=== PATIENT | female | born 1990 | race Caucasian/White ===

== ENCOUNTER 2018-09-19 20:49 | Emergency (ER) | payer BC ==
[~2018-09-19] VITALS: Ht 154.9 cm; Wt 63.7 kg
[2018-09-19 22:17] LABS: BASOPHILS % (AUTO) 0.2 % (0-1); EOSINOPHILS # (AUTO) 0.3 X10'3 (0-0.9); EOSINOPHILS % (AUTO) 2.6 % (0-6); HEMATOCRIT 49.6 % (35.0-45.0); HEMOGLOBIN 16.7 g/dl (12.0-16.0); LYMPHOCYTES # (AUTO) 1.9 X10'3 (1.1-4.8); LYMPHOCYTES % (AUTO) 14.8 % (21-51); MEAN CORPUSCULAR HGB CONC 33.7 g/dL (33.0-36.5); MEAN CORPUSCULAR VOLUME 91.9 FL (78-98); MEAN PLATELET VOLUME 8.7 FL (7.4-10.4); MONOCYTES # (AUTO) 0.3 X10'3 (0-0.9); MONOCYTES % (AUTO) 2.2 % (2-12); NEUTROPHILS # (AUTO) 10.2 X10'3 (1.8-7.7); NEUTROPHILS % (AUTO) 80.2 % (42-75); PLATELET COUNT 420 X10'3 (140-440); RED CELL DISTRIBUTION WIDTH 12.6 % (11.5-14.5); WHITE BLOOD COUNT 12.8 X10'3 (4.5-11.0)
[2018-09-19] MEDS ORDERED: normal saline 1000ML IV soln IVB ONE (22:30)
[2018-09-19] MEDS ORDERED: ondansetron/PF 4mg/2ml inj IV ONE (22:30)
[2018-09-19 22:34] LABS: ALANINE AMINOTRANSFERASE 13 U/L (12-78); ALBUMIN 4.5 G/DL (3.4-5.0); ALBUMIN/GLOBULIN RATIO 1.2 (1.1-1.5); ALKALINE PHOSPHATASE 65 IU/L (46-116); ANION GAP 13 (8-16); ASPARTATE AMINO TRANSFERASE 16 U/L (10-37); BILIRUBIN,TOTAL 0.8 MG/DL (0.1-1.0); BLOOD UREA NITROGEN 11 MG/DL (7-18); BUN/CREATININE RATIO 11.5 (6.6-38.0); CALCIUM 9.3 MG/DL (8.5-10.1); CHLORIDE 98 MMOL/L (99-107); CREATININE 0.96 MG/DL (0.40-0.90); GLUCOSE 97 MG/DL (70-104); POTASSIUM 3.3 MMOL/L (3.5-5.1); SODIUM 138 MMOL/L (135-145); TOTAL CARBON DIOXIDE 27.5 MMOL/L (24-32); TOTAL PROTEIN 8.2 G/DL (6.4-8.2); eGFR 69 ML/MIN
[2018-09-19 22:35] LABS: INR 1.1 INR; PROTHROMBIN TIME 10.7 SECONDS (9.0-12.0)
[2018-09-19 22:40] LABS: CLARITY,URINE CLEAR (Clear); COLOR,URINE YELLOW (Yellow); GLUCOSE, URINE NEGATIVE (Neg); KETONES,URINE TRACE mg/dl (Neg); LEUKOCYTE ESTERASE ,URINE NEGATIVE (Neg); NITRITES, URINE NEGATIVE (Neg); OCCULT BLOOD,URINE MODERATE (Neg); PROTEIN,URINE NEGATIVE (Neg); URINE HCG NEGATIVE (NEG); UROBILINOGEN,URINE 0.2 E.U/dL (0.2-1.0)
[2018-09-19 22:43] LABS: UA COLLECTION TYPE CLN CATCH MIDSTREAM
[2018-09-19 22:46] LABS: LIPASE 123 U/L (73-393)
[2018-09-19 22:48] LABS: BACTERIA,URINE FEW /HPF (Neg); SQUAMOUS EPITHELIAL CELL,UR FEW /LPF (FEW); WBC,URINE 0-4 /HPF (0-4)
[2018-09-19 22:49] LABS: MUCUS STRANDS MODERATE /LPF (Neg)
[2018-09-19] MEDS ORDERED: proCHLORperazine 10 MG/2 ml inj IV ONE (23:10)
[2018-09-20] MEDS ORDERED: potassium Cl oral solution 20 MEQ/15 ML PO ONE (00:50)
[2018-09-20] MEDS ORDERED: ONDA4TAB6 PO (00:51)
[2018-09-20] MEDS ORDERED: PROC25SU31 RC (00:51)
[2018-09-20] MEDS ORDERED: famotidine/PF 10 mg/ml inj IV ONE (01:10)
[2018-09-20] MEDS ORDERED: ondansetron/PF 4mg/2ml inj IV ONE (01:10)
[2018-09-20 01:27] VITALS: BP 139/100
== END 2018-09-20 01:29 | disposition home or self-care (01) ==
LOC: ER 20:50
DX: B34.9 Viral infection, unspecified (principal); E86.0 Dehydration; E87.6 Hypokalemia; R79.1 Abnormal coagulation profile; Z97.5 Presence of (intrauterine) contraceptive device; Z91.018 Allergy to other foods; Z88.1 Allergy status to other antibiotic agents
CPT/HCPCS: 36415; 74176; 80053; 81001; 81025; 83690; 85025; 85610; 96374; 96375; 96376; 99284; J0780; J2405; J3490; J7030

== ENCOUNTER 2018-10-21 19:52 | Emergency (ER) | payer BC ==
[~2018-10-21] VITALS: Ht 154.9 cm; Wt 58.0 kg
[~2018-10-21 19:52] MED LIST: ONDA4TAB6 PO; PROC25SU31 RC
[2018-10-21 21:09] VITALS: BP 130/94
[2018-10-21] MEDS ORDERED: normal saline 1000ML IV soln IVB ONE (21:15)
[2018-10-21] MEDS ORDERED: ondansetron/PF 4mg/2ml inj IV ONE (22:00)
[2018-10-21 22:09] LABS: BASOPHILS # (AUTO) 0.1 X10'3 (0-0.2); BASOPHILS % (AUTO) 0.7 % (0-1); EOSINOPHILS # (AUTO) 0.1 X10'3 (0-0.9); EOSINOPHILS % (AUTO) 1.5 % (0-6); HEMATOCRIT 44.4 % (35.0-45.0); HEMOGLOBIN 15.4 g/dl (12.0-16.0); LYMPHOCYTES # (AUTO) 2.2 X10'3 (1.1-4.8); LYMPHOCYTES % (AUTO) 26.3 % (21-51); MEAN CORPUSCULAR HGB CONC 34.7 g/dL (33.0-36.5); MEAN CORPUSCULAR VOLUME 89.2 FL (78-98); MEAN PLATELET VOLUME 9.1 FL (7.4-10.4); MONOCYTES % (AUTO) 11.8 % (2-12); NEUTROPHILS # (AUTO) 4.9 X10'3 (1.8-7.7); NEUTROPHILS % (AUTO) 59.7 % (42-75); PLATELET COUNT 383 X10'3 (140-440); RED BLOOD COUNT 4.97 X10'6 (4.20-5.60); WHITE BLOOD COUNT 8.3 X10'3 (4.5-11.0)
[2018-10-21 22:15] LABS: INR 1.1 INR
[2018-10-21 22:18] LABS: ALANINE AMINOTRANSFERASE 15 U/L (12-78); ALBUMIN 3.9 G/DL (3.4-5.0); ALBUMIN/GLOBULIN RATIO 1.1 (1.1-1.5); ALKALINE PHOSPHATASE 64 IU/L (46-116); ANION GAP 11 (8-16); ASPARTATE AMINO TRANSFERASE 12 U/L (10-37); BILIRUBIN,TOTAL 0.6 MG/DL (0.1-1.0); BLOOD UREA NITROGEN 10 MG/DL (7-18); BUN/CREATININE RATIO 9.6 (6.6-38.0); CALCIUM 9.4 MG/DL (8.5-10.1); CHLORIDE 99 MMOL/L (99-107); CREATININE 1.04 MG/DL (0.40-0.90); GLUCOSE 112 MG/DL (70-104); POTASSIUM 3.2 MMOL/L (3.5-5.1); SODIUM 137 MMOL/L (135-145); TOTAL CARBON DIOXIDE 26.8 MMOL/L (24-32); TOTAL PROTEIN 7.3 G/DL (6.4-8.2); eGFR 63 ML/MIN
[2018-10-21] MEDS ORDERED: PHE12.5T PO (22:44)
[2018-10-21] MEDS ORDERED: proCHLORperazine 10 MG/2 ml inj IM ONE (22:45)
[2018-10-21 23:49] LABS: URINE HCG NEGATIVE (NEG)
[2018-10-22 00:27] LABS: CLARITY,URINE SLIGHTLY CLOUDY (Clear); COLOR,URINE RED (Yellow); GLUCOSE, URINE NEGATIVE (Neg); KETONES,URINE 40 mg/dl (Neg); LEUKOCYTE ESTERASE ,URINE TRACE (Neg); NITRITES, URINE NEGATIVE (Neg); OCCULT BLOOD,URINE LARGE (Neg); PH,URINE 7.5 (4.8-8.0); PROTEIN,URINE NEGATIVE (Neg); UROBILINOGEN,URINE 0.2 E.U/dL (0.2-1.0)
[2018-10-22 00:35] LABS: UA COLLECTION TYPE CLN CATCH MIDSTREAM
[2018-10-22 00:54] LABS: BACTERIA,URINE FEW /HPF (Neg); MUCUS STRANDS FEW /LPF (Neg); RBC,URINE NONE SEEN /HPF (0-2); SQUAMOUS EPITHELIAL CELL,UR FEW /LPF (FEW); WBC,URINE 0-4 /HPF (0-4)
== END 2018-10-21 23:48 | disposition home or self-care (01) ==
LOC: ER 19:53
DX: E87.6 Hypokalemia (principal); E86.0 Dehydration; R11.2 Nausea with vomiting, unspecified; K59.00 Constipation, unspecified; R79.1 Abnormal coagulation profile; Z87.891 Personal history of nicotine dependence; Z88.1 Allergy status to other antibiotic agents; Z91.018 Allergy to other foods; Z79.899 Other long term (current) drug therapy
CPT/HCPCS: 36415; 80053; 81001; 81025; 85025; 85610; 87088; 96361; 96372; 96374; 99283; J0780; J2405; J7030; 81003

== ENCOUNTER 2018-10-26 11:56 | Emergency (ER) | payer BC ==
[~2018-10-26] VITALS: Ht 154.9 cm; Wt 56.2 kg
[~2018-10-26 11:56] MED LIST changes: +PHE12.5T PO; -PROC25SU31 RC
[2018-10-26 13:00] LABS: BASOPHILS % (AUTO) 0.5 % (0-1); EOSINOPHILS # (AUTO) 0.1 X10'3 (0-0.9); EOSINOPHILS % (AUTO) 0.7 % (0-6); HEMATOCRIT 48.7 % (35.0-45.0); HEMOGLOBIN 16.5 g/dl (12.0-16.0); LYMPHOCYTES # (AUTO) 1.9 X10'3 (1.1-4.8); LYMPHOCYTES % (AUTO) 20.6 % (21-51); MEAN CORPUSCULAR HEMOGLOBIN 30.3 PG (27.0-31.0); MEAN CORPUSCULAR HGB CONC 33.8 g/dL (33.0-36.5); MEAN CORPUSCULAR VOLUME 89.4 FL (78-98); MEAN PLATELET VOLUME 9.2 FL (7.4-10.4); MONOCYTES # (AUTO) 0.8 X10'3 (0-0.9); MONOCYTES % (AUTO) 8.5 % (2-12); NEUTROPHILS # (AUTO) 6.5 X10'3 (1.8-7.7); NEUTROPHILS % (AUTO) 69.7 % (42-75); PLATELET COUNT 386 X10'3 (140-440); RED BLOOD COUNT 5.44 X10'6 (4.20-5.60); RED CELL DISTRIBUTION WIDTH 12.9 % (11.5-14.5); WHITE BLOOD COUNT 9.4 X10'3 (4.5-11.0)
[2018-10-26 13:03] LABS: CLARITY,URINE CLOUDY (Clear); COLOR,URINE YELLOW (Yellow); GLUCOSE, URINE NEGATIVE (Neg); KETONES,URINE 40 mg/dl (Neg); LEUKOCYTE ESTERASE ,URINE TRACE (Neg); NITRITES, URINE NEGATIVE (Neg); OCCULT BLOOD,URINE LARGE (Neg); PROTEIN,URINE 30 mg/dl (Neg)
[2018-10-26 13:05] LABS: URINE HCG NEGATIVE (NEG)
[2018-10-26 13:11] LABS: UA COLLECTION TYPE CLN CATCH MIDSTREAM
[2018-10-26 13:13] LABS: MUCUS STRANDS MANY /LPF (Neg)
[2018-10-26 13:14] LABS: SQUAMOUS EPITHELIAL CELL,UR MANY /LPF (FEW)
[2018-10-26 13:14] LABS: INR 1.1 INR; PROTHROMBIN TIME 10.9 SECONDS (9.0-12.0)
[2018-10-26 13:17] LABS: BACTERIA,URINE 1+ /HPF (Neg)
[2018-10-26 13:21] LABS: CAL OXALATE CRYSTALS FEW /HPF (NEGATIVE)
--- NOTE | 2018-10-26 13:22 | NUR ---
UA REJECTED FOR CULTURE PER LAB.
[2018-10-26 13:40] LABS: ALANINE AMINOTRANSFERASE 18 U/L (12-78); ALBUMIN 4.2 G/DL (3.4-5.0); ALBUMIN/GLOBULIN RATIO 1.1 (1.1-1.5); ALKALINE PHOSPHATASE 65 IU/L (46-116); ANION GAP 14 (8-16); ASPARTATE AMINO TRANSFERASE 18 U/L (10-37); BILIRUBIN,TOTAL 0.7 MG/DL (0.1-1.0); BLOOD UREA NITROGEN 13 MG/DL (7-18); BUN/CREATININE RATIO 16.5 (6.6-38.0); CALCIUM 9.9 MG/DL (8.5-10.1); CHLORIDE 98 MMOL/L (99-107); CREATININE 0.79 MG/DL (0.40-0.90); GLUCOSE 92 MG/DL (70-104); POTASSIUM 3.7 MMOL/L (3.5-5.1); SODIUM 135 MMOL/L (135-145); TOTAL CARBON DIOXIDE 23.5 MMOL/L (24-32); TOTAL PROTEIN 7.9 G/DL (6.4-8.2); eGFR 86 ML/MIN
[2018-10-26 13:48] LABS: LIPASE 96 U/L (73-393)
[2018-10-26] MEDS ORDERED: normal saline 1000ML IV soln IVB ONE (14:25)
[2018-10-26] MEDS ORDERED: proCHLORperazine 10 MG/2 ml inj IV ONE ×2 (14:25→16:35)
[2018-10-26] MEDS ORDERED: normal saline 1000ml 1,000 ML IV ONE (15:05)
[2018-10-26] MEDS ORDERED: ONDA8TAB13 PO (16:37)
[2018-10-26] MEDS ORDERED: PROC25SU31 RC (16:37)
--- NOTE | 2018-10-26 17:07 | NUR ---
PATIENT DRANK 120 ML OF ICE WATER AND NOW DENIES NAUSEA
--- NOTE | 2018-10-26 17:09 | NUR ---
PATIENT CONSUMED 16 OZ WATER WITHOUT NAUSEA AND VOMITING.
[2018-10-26 17:29] VITALS: BP 121/84
== END 2018-10-26 17:31 | disposition home or self-care (01) ==
LOC: ER 11:57
DX: R11.2 Nausea with vomiting, unspecified (principal); R10.9 Unspecified abdominal pain; F12.90 Cannabis use, unspecified, uncomplicated; Z91.018 Allergy to other foods; Z88.1 Allergy status to other antibiotic agents; Z79.899 Other long term (current) drug therapy
CPT/HCPCS: 36415; 80053; 81001; 81025; 83690; 84443; 85025; 85610; 96361; 96374; 96376; 99283; J0780; J7030